=== PATIENT | female | born 1990 | race Caucasian/White ===

== ENCOUNTER 2018-06-21 16:07 | Emergency (ER) | payer MEDICAID, OTHER ==
[~2018-06-21] VITALS: Ht 157.5 cm; Wt 76.7 kg
[2018-06-21 16:22] VITALS: BP 175/100
[2018-06-21] MEDS ORDERED: KETOROLAC TROMETH 60MG/2ML VIAL IM ONE (17:30)
== END 2018-06-21 18:09 | disposition home or self-care (01) ==
LOC: ER 16:12
DX: M79.675 Pain in left toe(s) (principal); J45.909 Unspecified asthma, uncomplicated; E11.9 Type 2 diabetes mellitus without complications; I10 Essential (primary) hypertension; Z88.0 Allergy status to penicillin; Z88.6 Allergy status to analgesic agent
CPT/HCPCS: 73630; 96372; 99283; J1885

== ENCOUNTER 2021-03-13 23:07 | Emergency (ER) | payer MEDICAID ==
[~2021-03-13] VITALS: Ht 157.5 cm; Wt 71.2 kg
[2021-03-14 01:50] VITALS: BP 177/99
[2021-03-14] MEDS ORDERED: cloNIDine HCL 0.1 MG TAB PO ONE (02:15)
[2021-03-14] MEDS ORDERED: KETOROLAC TROMETH 60MG/2ML VIAL IM ONE (02:30)
== END 2021-03-14 03:47 | disposition home or self-care (01) ==
LOC: ER 23:07
DX: S50.01XA Contusion of right elbow, initial encounter (principal); J45.909 Unspecified asthma, uncomplicated; E11.9 Type 2 diabetes mellitus without complications; I10 Essential (primary) hypertension; Z88.5 Allergy status to narcotic agent; Z88.0 Allergy status to penicillin; Z88.8 Allergy status to other drugs, medicaments and biological substances; W01.0XXA Fall on same level from slipping, tripping and stumbling without subsequent striking against object, initial encounter; Y93.89 Activity, other specified; Y92.89 Other specified places as the place of occurrence of the external cause; Y99.8 Other external cause status
CPT/HCPCS: 73060; 73080; 96372; 99284; J1885

== ENCOUNTER 2021-05-24 22:18 | Emergency (ER) | payer MEDICAID ==
[~2021-05-24] VITALS: Ht 157.5 cm; Wt 72.1 kg
[2021-05-25] MEDS ORDERED: KETOROLAC TROMETH 60MG/2ML VIAL IM ONE (02:00)
[2021-05-25 02:13] VITALS: BP 191/94
== END 2021-05-25 02:21 | disposition home or self-care (01) ==
LOC: ER 22:18
DX: H66.91 Otitis media, unspecified, right ear (principal); R51.9 Headache, unspecified; J45.909 Unspecified asthma, uncomplicated; E11.9 Type 2 diabetes mellitus without complications; I10 Essential (primary) hypertension; Z88.0 Allergy status to penicillin; Z88.8 Allergy status to other drugs, medicaments and biological substances
CPT/HCPCS: 96372; 99283; J1885

== ENCOUNTER 2024-07-14 21:43 | Emergency (ER) | payer MEDICAID | END 2024-07-14 22:49 | disposition left against medical advice (07) | LOC: ER 21:43 | DX: N93.9 Abnormal uterine and vaginal bleeding, unspecified (principal); Z53.21 Procedure and treatment not carried out due to patient leaving prior to being seen by health care provider ==